=== PATIENT | female | born 1980 | race Caucasian/White ===

== ENCOUNTER 2021-06-08 11:09 | Inpatient (IN) | payer OTHER ==
[~2021-06-08] VITALS: Ht 162.6 cm; Wt 137.4 kg
[2021-06-08] MEDS ORDERED: FAMOTIDINE 20MG/2ML VIAL IV STA (12:44)
[2021-06-08] MEDS ORDERED: ONDANSETRON HCL 4MG/2ML INJ IV STA (12:44)
[2021-06-08] MEDS ORDERED: SODIUM CHLORIDE 0.9% 1,000 ML IV ONE (12:45)
[2021-06-08] MEDS ORDERED: MORPHINE SULFATE 4 MG/ML CPJ (NOT FOR IM USE) IV ONE (13:15)
[2021-06-08 13:21] LABS: MEAN CORPUSCULAR HEMOGLOBIN 25.9 pg (28.0-32.0); MEAN CORPUSCULAR VOLUME 81.5 fL (81.0-99.0); MEAN PLATELET VOLUME 9.3 fl (7.4-10.4); PLATELET 333 x1000/uL (130-400); RED BLOOD CELL COUNT 5.03 mill/uL (4.2-5.4); RED CELL DISTRIBUTION WIDTH 16.8 % (11.6-14.6)
[2021-06-08 13:27] LABS: CHLORIDE 105 mEq/L (98-107)
[2021-06-08 13:32] LABS: HCG SCREEN NEGATIVE
[2021-06-08 14:12] LABS: PLATELET ESTIMATE NORMAL
[2021-06-08] MEDS ORDERED: IOHEXOL-300 100 ML BOTTLE ONE (15:21)
[2021-06-08 16:18] LABS: CLARITY URINE CLEAR (CLEAR); COLOR URINE YELLOW (YELLOW); KETONES URINE TRACE (NEGATIVE); LEUKOCYTE ESTERASE URINE 1+ (NEGATIVE); NITRITE URINE NEGATIVE (NEGATIVE); OCCULT BLOOD URINE 1+ (NEGATIVE); PROTEIN URINE NEGATIVE (NEGATIVE); SPECIFIC GRAVITY URINE 1.032 (1.005-1.030)
[2021-06-08] MEDS ORDERED: LEVOFLOXACIN 500MG PREMIX 100 ML IV SCH (21:15)
[2021-06-08] MEDS ORDERED: ACETAMINOPHEN 650MG SUPP PR PRN ×2 (21:15)
[2021-06-08] MEDS ORDERED: NALOXONE HCL 0.4MG/ML VIAL IV PRN (21:30)
[2021-06-08 22:35] VITALS: BP 118/60
[2021-06-08] MEDS ORDERED: PNEUMOCOCCAL 23-VAL P-SAC VAC 0.5 ML IM ONE (23:45)
[2021-06-09] VITALS: BP 120/65
[2021-06-09] MEDS ORDERED: MORPHINE SULFATE 2 MG/ML CPJ (NOT FOR IM USE) IV PRN (01:15)
[2021-06-09] MEDS: DEXT 5%/0.45% NACL 1000ML 1,000 ML IV SCH ×4 (02:51→21:18)
[2021-06-09 04:00] VITALS: BP 110/75
[2021-06-09 06:43] LABS: BASOPHILS % 0.7 % (0.0-2.0); EOSINOPHILS % 0.6 % (0.0-5.0); HEMOGLOBIN. 11.7 g/dL (12.0-16.0); LYMPHOCYTES % 20.5 % (20.0-50.0); MEAN CORPUSCULAR HEMOGLOBIN 26.6 pg (28.0-32.0); MEAN CORPUSCULAR VOLUME 81.9 fL (81.0-99.0); MEAN PLATELET VOLUME 9.4 fl (7.4-10.4); MONOCYTES % 8.3 % (2.0-8.0); NEUTROPHILS % 69.9 % (40.0-76.0); PLATELET 269 x1000/uL (130-400); RED CELL DISTRIBUTION WIDTH 16.9 % (11.6-14.6)
[2021-06-09 06:54] LABS: CHLORIDE 108 mEq/L (98-107)
[2021-06-09 07:03] LABS: AMYLASE 38 IU/L (25-115)
[2021-06-09] MEDS: HYDROMORPHONE HCL/PF 2MG/ML CPJ IV PRN ×2 (08:23→21:27)
[2021-06-09] MEDS: PANTOPRAZOLE SODIUM 40 MG/VIAL IV SCH (09:09)
[2021-06-09] MEDS: ONDANSETRON HCL 4MG/2ML INJ IV PRN ×2 (10:26→18:02)
[2021-06-09] MEDS ORDERED: POTASSIUM CHLORIDE INJ 40 MEQ in DEXT 5% WATER 500 ML IV ONE (15:15)
[2021-06-09] MEDS: KCL 20MEQ/100ML PREMIX 100 ML IV SCH ×2 (17:11→21:18)
[2021-06-09 20:00] VITALS: BP 111/52
[2021-06-09] MEDS ORDERED: LEVOFLOXACIN 500MG PREMIX 100 ML IV SCH (23:30)
[2021-06-10] VITALS: BP 120/62
[2021-06-10 04:00] VITALS: BP 110/65
[2021-06-10] MEDS: DEXT 5%/0.45% NACL 1000ML 1,000 ML IV SCH ×2 (05:34→13:15)
[2021-06-10 07:09] LABS: BASOPHILS % 0.6 % (0.0-2.0); EOSINOPHILS % 1.7 % (0.0-5.0); HEMATOCRIT. 37.6 % (36.0-48.0); HEMOGLOBIN. 12.2 g/dL (12.0-16.0); LYMPHOCYTES % 24.9 % (20.0-50.0); MEAN CORPUSCULAR HEMOGLOBIN 26.1 pg (28.0-32.0); MEAN CORPUSCULAR VOLUME 80.7 fL (81.0-99.0); MEAN PLATELET VOLUME 9.4 fl (7.4-10.4); MONOCYTES % 7.9 % (2.0-8.0); NEUTROPHILS % 64.9 % (40.0-76.0); PLATELET 261 x1000/uL (130-400); RED BLOOD CELL COUNT 4.66 mill/uL (4.2-5.4); RED CELL DISTRIBUTION WIDTH 17.1 % (11.6-14.6)
[2021-06-10 07:17] LABS: CHLORIDE 106 mEq/L (98-107)
[2021-06-10 07:28] LABS: AMYLASE 44 IU/L (25-115)
[2021-06-10] MEDS: PANTOPRAZOLE SODIUM 40 MG/VIAL IV SCH (09:13)
[2021-06-10] MEDS: ACETAMINOPHEN 325MG TABLET PO PRN ×2 (10:36→16:39)
[2021-06-10 17:18] VITALS: BP 139/73
== END 2021-06-10 17:46 | disposition home or self-care (01) | DRG 392 ==
LOC: ER 11:09 → 6EST 17:36 → ENRESERV 20:55 → EDBEDREQ 22:21 → 6EST 22:54
PROVIDERS: ADMIT Internal Medicine; ATTEND Internal Medicine
DX: R10.13 Epigastric pain (principal); E87.6 Hypokalemia; K75.9 Inflammatory liver disease, unspecified; R74.8 Abnormal levels of other serum enzymes; R74.01 Elevation of levels of liver transaminase levels; R50.9 Fever, unspecified; R11.2 Nausea with vomiting, unspecified; Z90.49 Acquired absence of other specified parts of digestive tract
CPT/HCPCS: 36415; 71045; 74177; 76700; 80048; 80053; 80076; 81003; 82150; 82248; 84703; 85025; 90732; 93005; 99285; C9113; J1170; J1956; J2270; J2405; J3480; J3490; J7030; Q9967